=== PATIENT | female | born 1975 | race African-American/Black ===

== ENCOUNTER → 2017-11-10 | Emergency (ER) | payer MEDICAID ==
[~2017-11-10] VITALS: Ht 167.6 cm; Wt 123.4 kg
[~2017-11-10] MED LIST: VENTOLIN HFA18 GM INH
--- NOTE | 2017-11-10 08:04 | Emergency Room Report ---
History of Present Illness General Chief Complaint: To Be Triaged Source: Patient Present Illness HPI 42YOF walk-in with dry cough and chest heaviness Cough exacerbated by exertional activity No fever/chills or body aches No flu vaccine. No sick contacts Was "more productive last week" with cough, assoc with rhinorrhea, nasal congestion - those symptoms since cleared up. Finished Z-pack from PMD last week. No previous history of SOB, chest pain, leg pain/swelling. No family or self history of DVT, PE. Non-smoker. No oral control, recent surgery, prolonged immobilization. No history of ACS, CAD, HTN, DM, HLD. Allergies: Coded Allergies: No Known Allergies (Unverified , 06/21/12) Patient History Past Medical History: none Past Surgical History: none Pertinent Family History: none Social History: Denies: smoking, alcohol use, drug use Now: No Immunizations: UTD Reviewed Nursing Documentation: PMH: Agreed, PSxH: Agreed Review of Systems All Other Systems: negative except mentioned in HPI Physical Exam Sp02 EP Interpretation: reviewed, normal General Appearance: normal inspection, well appearing, no apparent distress, alert, GCS 15, non-toxic, obese Head: normocephalic, atraumatic Eyes: bilateral eye PERRL, bilateral eye EOMI ENT: normal ENT inspection, hearing grossly normal, normal pharynx, no angioedema, normal voice, TMs + canals normal, uvula midline, moist mucus membranes Neck: normal inspection, full range of motion, supple, thyroid normal, no meningismus, no bony tend Respiratory: normal inspection, lungs clear, normal breath sounds, no rhonchi, no respiratory distress, no retraction, no accessory muscle use, no wheezing, speaking full sentences Cardiovascular #1: regular rate, rhythm, no edema, no JVD, normal capillary refill Gastrointestinal: normal inspection, normal bowel sounds, non tender, soft, no mass, no peritonitis, non-distended, no guarding, no hernia, no pulsatile mass Genitourinary: no CVA tenderness Musculoskeletal: normal inspection, back normal, normal range of motion, no calf tenderness, pelvis stable, Shana's Sign negative Neurologic: normal inspection, alert, oriented x3, responsive, 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 nml as tested, motor strength/tone normal, cerebellar normal, normal gait, speech normal Psychiatric: normal inspection, judgement/insight normal, mood/affect normal, no suicidal/homicidal ideation, no delusions Skin: normal inspection, normal color, no rash Lymphatic: normal inspection, no adenopathy Medical Decision Making Diagnostic Impression: Primary Impression: Cough ER Course Likely URI, bronchitis VSS, afebrile No wheezing on exam No rhonchi on exam - unlikely PNA katharina since finished Zpack already Unlikely ACS, PE given no risk factors, associated symptoms Rx ventolin Asked for work excuse note ER course: Patient has remained stable during ED stay. Disposition: Patient is to be discharged to home. Prescriptions given are ventolin Patient is instructed to follow up with their primary care doctor within 5 days. Strict return precautions discussed with patient such as fever, chills, worsening/severe pain, nausea, vomiting, which may indicate severe illness. Patient verbalizes understanding and agrees with plan. Please note that this Emergency Department Report was dictated using [employer] washer technology software, occasionally this can lead to erroneous entry secondary to interpretation by the dictation equipment EKG Diagnostic Results Rate: normal Rhythm: NSR ST Segments: no acute changes ASA given to the pt in ED: No Chest X-Ray Diagnostic Results Chest X-Ray Diagnostic Results : Chest X-Ray Ordered: Yes # of Views/Limited/Complete: 1 View Indication: Chest Pain EP Interpretation: Yes Interpretation: no consolidation, no effusion, no pneumothorax, no acute cardiopulmonary disease Impression: No acute disease Electronically Signed by: Dr Kamari Torres MD Status: improved Disposition: HOME, SELF-CARE Scripts Albuterol Sulfate (VENTOLIN HFA) 18 Gm Hfa.aer.ad 1 PUFF INH EVERY 6 HOURS for SOB, cough, #18 GM 0 Refills Prov: KAMARI TORRES M.D. 11/10/17 KAMARI TORRES M.D. Nov 10, 2017 08:04
[2017-11-10 08:12] VITALS: BP 136/97
[2017-11-10 08:37] VITALS: BP 138/97
== END | disposition home or self-care (01) ==
LOC: EMR 08:23
DX: R05 Cough (principal); R07.89 Other chest pain
CPT/HCPCS: 99283

== ENCOUNTER 2018-04-15 09:42 | Emergency (ER) | payer BC, MEDICAID ==
[~2018-04-15] VITALS: Ht 167.6 cm; Wt 124.7 kg
[2018-04-15] MEDS ORDERED: NKM (09:56)
[2018-04-15] MEDS ORDERED: OLOPATADINE HCL5 ML OP (10:14)
[2018-04-15] MEDS ORDERED: CLARITIN10 M1 ORAL (10:14)
[2018-04-15] MEDS ORDERED: ARTIFICIAL TEAR15 ML BOTH EYES (10:14)
[2018-04-15 10:20] VITALS: BP 122/74
--- NOTE | 2018-04-15 13:09 | Emergency Room Report ---
History of Present Illness General Chief Complaint: Eye Problems Source: Patient Present Illness HPI Patient is a 42-year-old female presents after increased eye irritation. Patient denies any change in her vision. She reports having bilaterally increased eye itchiness as well as increased discharge. She denies any fever. She reports having irrigated her eyes with water which seemed to help slightly. Patient denies any fever. She denies any sore throat. She had not been having any vomiting or diarrhea. She denies sick contacts with similar symptoms. 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 She was prior history of seasonal allergies. Allergies: Coded Allergies: No Known Allergies (Unverified , 06/21/12) Patient History Last Menstrual Period: march 2018 Now: No Reviewed Nursing Documentation: PMH: Agreed; PSxH: Agreed Nursing Documentation-PMH Hx Hypertension: Yes Hx Asthma: Yes Review of Systems All Other Systems: negative except mentioned in HPI Physical Exam Vital Signs Date Time Temp Pulse Resp B/P (MAP) Pulse Ox O2 Delivery O2 Flow Rate FiO2 04/15/18 09:54 98.9 72 16 139/89 97 Room Air 99.0 General Appearance: well appearing, no apparent distress, alert, GCS 15 Head: normocephalic, atraumatic Eyes: bilateral eye PERRL ENT: hearing grossly normal, normal voice Neck: full range of motion, supple Respiratory: no respiratory distress, speaking full sentences Musculoskeletal: no calf tenderness Neurologic: normal gait Psychiatric: mood/affect normal Skin: no rash Medical Decision Making Diagnostic Impression: Primary Impression: Allergic conjunctivitis ER Course Patient presented for bilateral eye redness. Differential diagnosis included but wasn't limited to allergic conjunctivitis, glaucoma, iritis, corneal abrasion, bacterial conjunctivitis, viral conjunctivitis. Patient has a benign exam and does not appear to require any further imaging or laboratory testing at this time. The patient presented a allergic conjunctivitis. This does not appear to require any antibiotics at this time. Patient was cleared return to work. The patient given prescription for artificial tears as well as antihistamines. The patient is advised to recheck with her eye doctor in 1-2 days. Last Vital Signs Date Time Temp Pulse Resp B/P (MAP) Pulse Ox O2 Delivery O2 Flow Rate FiO2 04/15/18 10:20 98.1 78 18 122/74 99 Room Air 99.0 Status: improved Disposition: HOME, SELF-CARE Condition: Stable Scripts Loratadine (CLARITIN) 10 Mg Tab.rapdis 10 MG ORAL DAILY, #30 TAB Prov: Musa Melendez MD 04/15/18 Dextran 70/Hypromellose (ARTIFICIAL TEARS EYE DROPS*) 15 Ml Drops 1 DROP BOTH EYES FOUR TIMES A DAY, #15 ML 0 Refills Prov: Musa Melendez MD 04/15/18 Olopatadine HCl (Olopatadine HCl) 5 Ml Drops 5 ML OP EVERY 6 HOURS, #5 ML Prov: Musa Melendez MD 04/15/18 Referrals: NON PHYSICIAN (PCP) Departure Forms: Return to Work Return to Work in (Days): 1 Patient Instructions: Allergic Conjunctivitis Musa Melendez MD Apr 15, 2018 13:09
== END 2018-04-15 11:00 | disposition home or self-care (01) ==
LOC: EMR 10:10
DX: H10.13 Acute atopic conjunctivitis, bilateral (principal); I10 Essential (primary) hypertension; J45.909 Unspecified asthma, uncomplicated
CPT/HCPCS: 99283

== ENCOUNTER 2018-10-27 08:39 | Emergency (ER) | payer BC, MEDICAID ==
[~2018-10-27] VITALS: Ht 167.6 cm; Wt 121.6 kg
[~2018-10-27 08:39] MED LIST changes: +ARTIFICIAL TEAR15 ML BOTH EYES; +CLARITIN10 M1 ORAL; +NKM; +OLOPATADINE HCL5 ML OP
[2018-10-27 09:00] VITALS: BP 158/107
--- NOTE | 2018-10-27 09:21 | NUR ---
ED Nurse Note: Pt. AAOx4. ambulatory. Came in to ER due to having a facial rash and itching eyes since saturday. states has been using a new face treatment 3 times last week, with last use . denies new foods or medications. no resp distress. denies throat irritation
[2018-10-27] MEDS ORDERED: BENADRYL25 MG ORAL (09:41)
[2018-10-27 09:42] VITALS: BP 158/68
--- NOTE | 2018-10-27 09:42 | NUR ---
ED Nurse Note: PT. AAOX4. LEFT WITH STEADY GAIT. PT. EDUCATION DONE REGARDING D/C PAPERS AND PRESCRIPTIONS.PT. VERBALIZED THE UNDERSTANDING OF THE TEACHING. VSS. ID ARMBAND REMOVED.
--- NOTE | 2018-10-27 22:03 | Emergency Room Report ---
History of Present Illness General Chief Complaint: Allergic Reaction Present Illness HPI Patient presented for facial rash several days ago. This had improved after benadryl. No rash currently.Patient states that she had been using some new facial product. She denies any difficulty breathing. Patient was reportedly having symptoms several days ago but denies any current symptoms. Patient stated she just wanted to be checked. Allergies: Coded Allergies: PENICILLINS (Verified Allergy, Severe, 10/27/18) pt states "yeast infection" Patient History Past Medical History: see triage record Last Menstrual Period: 09-08-- irregular Now: No Reviewed Nursing Documentation: PMH: Agreed; PSxH: Agreed Nursing Documentation-PMH Past Medical History: No History, Except For Hx Hypertension: Yes Hx Asthma: Yes Review of Systems All Other Systems: negative except mentioned in HPI Physical Exam Vital Signs Date Time Temp Pulse Resp B/P (MAP) Pulse Ox O2 Delivery O2 Flow Rate FiO2 10/27/18 09:00 99.3 77 18 158/107 98 Room Air General Appearance: well appearing, no apparent distress, alert, GCS 15, obese Head: normocephalic, atraumatic ENT: hearing grossly normal, normal pharynx, normal voice Neck: full range of motion, supple Respiratory: lungs clear, no respiratory distress, speaking full sentences Cardiovascular #1: normal peripheral pulses, regular rate, rhythm, no edema Gastrointestinal: normal inspection Musculoskeletal: normal inspection Neurologic: normal inspection, alert, oriented x3, responsive, normal gait Psychiatric: normal inspection, mood/affect normal Skin: normal inspection, normal color, no rash Medical Decision Making Diagnostic Impression: Primary Impression: Allergic reaction ER Course Patient presented for skin rash. Differential diagnosis include was not limited to allergic reaction, contact dermatitis, measles, scabies among others. Patient has a benign exam and does not appear to require any further imaging or laboratory testing at this time. Patient presented with what appeared to be a allergic reaction several days ago. Last Vital Signs Date Time Temp Pulse Resp B/P (MAP) Pulse Ox O2 Delivery O2 Flow Rate FiO2 10/27/18 09:42 98.4 85 19 158/68 100 Room Air Status: improved Disposition: HOME, SELF-CARE Condition: Stable Scripts Diphenhydramine Hcl* (BENADRYL*) 25 Mg Capsule 25 MG ORAL Q6H PRN for Itching, #30 CAP Prov: Musa Melendez MD 10/27/18 Referrals: NOT CHOSEN IPA/,REFERRING Patient Instructions: Musa Willson MD Oct 27, 2018 22:03
== END 2018-10-27 09:42 | disposition home or self-care (01) ==
LOC: EMR 09:24
DX: T78.40XA Allergy, unspecified, initial encounter (principal); X58.XXXA Exposure to other specified factors, initial encounter; I10 Essential (primary) hypertension; E11.9 Type 2 diabetes mellitus without complications; Z88.0 Allergy status to penicillin
CPT/HCPCS: 99282